=== PATIENT | male | born 1945 | race Caucasian/White ===

== ENCOUNTER → 2016-07-16 | Outpatient (CLI) | payer OTHER ==
--- NOTE | 2016-07-16 16:45 | RAD ---
Right breast ultrasound, 07/16/2016: History: Follow-up lump Previous studies demonstrated a vague ill-defined area of slightly decreased echogenicity at the 11:00 location in the right breast, proximally 4 cm from the nipple. A targeted ultrasound exam of that region was performed today. The fibroglandular shadows are heterogeneous. The findings are similar to the 02/13/2016 and the 08/07/2015 exams. A discrete mass clearly separable from the adjacent fibroglandular shadows is not currently seen. This appearance is likely due to scarring. Clinical surveillance and further sonographic follow-up in one year is suggested to confirm stability. BI-RADS 3-probably benign findings
== END | disposition home or self-care (01) ==
LOC: MAMMO 12:40
PROVIDERS: ATTEND Internal Medicine
DX: D48.61 Neoplasm of uncertain behavior of right breast (principal)
CPT/HCPCS: 76641

== ENCOUNTER → 2017-07-22 | Outpatient (CLI) | payer OTHER ==
--- NOTE | 2017-07-22 13:17 | RAD ---
DATE: 07/22/2017 EXAM: DIGITAL DIAGNOSTIC RT HISTORY: Right breast follow-up, mild gynecomastia COMPARISON: 08/07/2015 This study was interpreted with the benefit of Computerized Aided Detection (CAD). The breast parenchyma shows scattered fibroglandular densities. Breast parenchyma level B. FINDINGS: No new or enlarging right breast opacity is seen. No suspicious microcalcifications are evident. Stability over the course of 2 years suggests mild benign gynecomastia. IMPRESSION: Stable right mammograms without evidence of malignancy. BI-RADS CATEGORY: 2 BENIGN FINDING(S) RECOMMENDED FOLLOW-UP: CLIN FOLLOW UP IMAGING CLINICALLY INDICATED PQRS compliance statement: Patient information was entered into a reminder system with a target due date for the next mammogram. Mammography is a sensitive method for finding small breast cancers, but it does not detect them all and is not a substitute for careful clinical examination. A negative mammogram does not negate a clinically suspicious finding and should not result in delay in biopsying a clinically suspicious abnormality. "Our facility is accredited by the [employer] Mammography Program."
== END | disposition home or self-care (01) ==
LOC: MAMMO 12:26
PROVIDERS: ATTEND Internal Medicine
DX: R92.8 Other abnormal and inconclusive findings on diagnostic imaging of breast (principal)
CPT/HCPCS: 77065